=== PATIENT | male | born 1990 | race Caucasian/White ===

== ENCOUNTER 2020-04-07 10:09 | Emergency (ER) | payer OTHER ==
[2020-04-07] MEDS ORDERED: TORAdol 30 mg Injection IM ONE (10:31)
[2020-04-07] MEDS ORDERED: Cleocin Phosphate IV 600 MG/4 ML IM STA (10:31)
[2020-04-07] MEDS ORDERED: Cleocin Phosphate IV 600 MG/4 ML ONE (10:33)
[2020-04-07] MEDS ORDERED: TORAdol 30 mg Injection ONE (10:33)
--- NOTE | 2020-04-07 10:36 | ERPHSYRPT ---
- History of Present Illness Time Seen by Provider: 04/07/20 10:22 Source: patient, old records Patient Subjective Stated Complaint: Abscess Triage Nursing Assessment: Patient ambulated back to ED and transferred self to bed. Patient A+O X3. Patient's skin pink, warm and dry. Patient states two days ago he was bit by a spider on his left buttocks. Patient states the area has gotten big and hurts 12/17. Patient reports black drainage coming from area. Abscess noted to left buttocks with hard area with redness and warmth all around. Physician History: 30 years old male presented in the ER with chief complaint of left buttock swelling after an insect bite 2 days ago while sitting in the car. Gradually worsening pain and swelling and appearance of a small dark area in the center where got bit. Girlfriend squeezed it out. No discharge coming right now. Moderate intensity sharp pain which is aggravated with movements palpation, sitting and partial relief with applying warm compresses. No fever or chills. No history of MRSA. Timing/Duration: day(s) (2), sudden, worse Quality: burning, itchy, painful Severity: moderate Location: extremities Possible Causes: insect bite Modifying Factors: Worsens With: scratching Associated Symptoms: change in skin texture, rash, swelling/mass/lumps Allergies/Adverse Reactions: amoxicillin Allergy (Verified 04/07/20 10:14) Hx Influenza Vaccination/Date Given: No Hx Pneumococcal Vaccination/Date Given: No Immunizations Up to Date: Yes Travel Risk - International Travel Have you traveled outside of the country in past 3 weeks: No - Coronavirus Screening Are you exhibiting any of the following symptoms?: No Close contact with a COVID-19 positive Pt in past 14-21 Days: No - Review of Systems Constitutional: No Symptoms Eyes: No Symptoms Respiratory: No Symptoms Cardiac: No Symptoms Abdominal/Gastrointestinal: No Symptoms Genitourinary Symptoms: No Symptoms Musculoskeletal: No Symptoms Skin: Cellulitis, Rash Neurological: No Symptoms Psychological: No Symptoms Endocrine: No Symptoms Hematologic/Lymphatic: No Symptoms Immunological/Allergic: No Symptoms - Past Medical History Pertinent Past Medical History: No Neurological History: No Pertinent History ENT History: No Pertinent History Cardiac History: No Pertinent History Respiratory History: No Pertinent History Endocrine Medical History: No Pertinent History Musculoskeletal History: No Pertinent History GI Medical History: No Pertinent History History: No Pertinent History Psycho-Social History: No Pertinent History Male Reproductive Disorders: No Pertinent History - Past Surgical History Past Surgical History: No Neuro Surgical History: No Pertinent History Cardiac: No Pertinent History Respiratory: No Pertinent History Gastrointestinal: Hernia Repair Genitourinary: No Pertinent History Musculoskeletal: No Pertinent History Male Surgical History: No Pertinent History - Social History Smoking Status: Never smoker Exposure to second hand smoke: No Drug Use: none Patient Lives Alone: Yes - Nursing Vital Signs Nursing Vital Signs: Initial Vital Signs Temperature 99.5 F 04/07/20 10:17 Pulse Rate 103 H 04/07/20 10:17 Respiratory Rate 18 04/07/20 10:17 Blood Pressure 161/103 04/07/20 10:17 O2 Sat by Pulse Oximetry 96 04/07/20 10:17 Pain Scale Pain Intensity 6 - Physical Exam General Appearance: no apparent distress Eye Exam: eyes nml inspection Ears, Nose, Throat Exam: normal ENT inspection, pharynx normal Neck Exam: normal inspection, supple, full range of motion Respiratory Exam: normal breath sounds, lungs clear Cardiovascular Exam: regular rate/rhythm, normal heart sounds Gastrointestinal/Abdomen Exam: soft, normal bowel sounds Back Exam: normal inspection, normal range of motion Extremity Exam: normal inspection, normal range of motion Neurologic Exam: alert, oriented x 3, cooperative Skin Exam: other (Left buttock 5 x centimeter area of induration with central loss of skin with no bleeding or discharge. Warm, tender to touch. Firm consistency. No fluctuation. Cm) SpO2 Interpretation: normal SpO2: 96 O2 Delivery: Room Air Ordered Tests: Medication Summary Discontinued Medications Generic Name Dose Route Start Last Admin Trade Name Freq PRN Reason Stop Dose Admin Clindamycin Phosphate 600 mg 04/07/20 10:31 04/07/20 10:35 Cleocin Phosphate Iv 600 Mg/4 Ml IM 04/07/20 10:32 600 mg STAT STA Administration Clindamycin Phosphate Confirm 04/07/20 10:33 Cleocin Phosphate Iv 600 Mg/4 Ml Administered 04/07/20 10:34 Dose 600 mg .ROUTE .STK-MED ONE Ketorolac Tromethamine 30 mg 04/07/20 10:31 04/07/20 10:34 Toradol 30 Mg Injection IM 04/07/20 10:32 30 mg STAT ONE Administration Ketorolac Tromethamine Confirm 04/07/20 10:33 Toradol 30 Mg Injection Administered 04/07/20 10:34 Dose 30 mg .ROUTE .STK-MED ONE - Progress Progress: unchanged Progress Note: 04/07/20 10:33 I believe patient has cellulitis no fluctuation, do not think needs I&D. Started on clindamycin, warm compresses, sitz bath and outpatient follow-up. Discussed signs symptoms of worsening needing return to ER which he seems understanding. - Departure Departure Disposition: Home Clinical Impression: Cellulitis of buttock, left Insect bite Qualifiers: Encounter type: initial encounter Site of insect bite: hip Laterality: left Qualified Code(s): S70.262A - Insect bite (nonvenomous), left hip, initial encounter Condition: Good Critical Care Time: No Referrals: TRACIE FERRARO MD [NON-STAFF PHY W/O PRIVILEGES] - (1-2 days for re evaluation) Instructions: MRSA (DC) Additional Instructions: Take Tylenol/ibuprofen as needed for pain. Continue with antibiotics. Apply warm compresses. Follow-up with your primary care physician for reevaluation in 1 to 2 days. Return to ER for increasing pain swelling redness discharge or if develop fever/chills. Prescriptions: Ibuprofen 600 mg PO Q6HPRN PRN 10 Days #20 tablet PRN Reason: Pain Clindamycin HCl 150 mg [Cleocin 150 mg Capsule] 2 cap PO QID #56 capsule
[2020-04-07 11:05] VITALS: BP 142/87; PULSE 106
[2020-04-07 23:04] VITALS: O2SAT 96
== END 2020-04-07 10:55 | disposition home or self-care (01) ==
LOC: ED 10:09
DX: L03.317 Cellulitis of buttock (principal); W57.XXXA Bitten or stung by nonvenomous insect and other nonvenomous arthropods, initial encounter; Y93.89 Activity, other specified; Y92.89 Other specified places as the place of occurrence of the external cause
CPT/HCPCS: 96372; 99284; J1885